=== PATIENT | male | born 1960 | race Caucasian/White ===

== ENCOUNTER 2024-01-17 01:22 | Observation (INO) | payer BC, SELFPAY ==
[2024-01-16 16:50] VITALS: BP 190/70
--- NOTE | 2024-01-16 17:58 | ED.GENMED ---
History of Present Illness
General
Chief Complaint: Chest Pain
Time Seen by Provider: 01/16/24 17:58
Travel History
Have you had any contact with someone who has COVID-19?: No
Do you have any symptoms of coronavirus? Fever > 100 degrees, chills, cough, shortness of breath, sore throat, loss of taste or smell, muscle aches, or headache?: No
History of Present Illness
History of Present Illness:
HPI: The patient presents with chest discomfort associated with palpitations. This been intermittently occurring associated with anxiety. He has been having trouble sleeping. agrees that this is most likely anxiety related. He does not take
any benzos. He was recently hospitalized at [facility] for distal lower extremity fractures. He states that he was recently told he has prolonged QT. He denies shortness of breath.
EXAM:
GENERAL: Well appearing in no distress
HEENT: Moist oral mucosa
CARDIOVASCULAR: No murmurs, normal heart rate, regular rhythm, No chest wall tenderness
PULMONARY: No respiratory distress, breath sounds are clear and equal
ABDOMEN: Soft with no peritoneal signs, no tenderness
NEUROLOGIC: Excellent strength all extremities, no coordination deficits
PSYCHIATRIC: Appropriate mental status, normal insight and judgement
EXTREMITIES: The patient has cam boots bilaterally, no calf edema/tenderness
SKIN: No rash, no lesions
TIME OF INITIAL ENCOUNTER: 6 PM
NUMBER AND COMPLEXITY OF PROBLEMS ADDRESSED AT THE ENCOUNTER
� Chronic conditions affecting care: High blood pressure, hyperlipidemia, GERD, IDDM, anxiety/depression
� Acute Exacerbation and/or Progression of Chronic Illness: This is an acute problem
� Differential Diagnosis includes: Anxiety, ACS, PE very unlikely as he has no shortness of breath currently in room air sats are 100% and his heart rate is in the 60s
AMOUNT AND/OR COMPLEXITY OF DATA TO BE REVIEWED AND ANALYZED
� I performed an independent evaluation of and my interpretation is:
EKG: Sinus 67, left axis deviation, nonspecific ST abnormality, borderline LVH, QTc [address]:
X-rays: Chest x-ray shows no acute abnormality
Laboratory Studies: White count 10.9, hemoglobin 10.5, initial troponin less than 0.012
Other:
� Review of other/old records: I look for old records�no old hemoglobin to compare
� Clinical information was obtained by an independent historian: Spoke to the at bedside
� Prescriptions/Medications Considered but not given:
� Further testing considered but not performed:
RISK OF COMPLICATIONS AND/OR MORBIDITY OR MORTALITY OF PATIENT MANAGEMENT
� Social determinants of health affecting care: Lives at home
� Discussion with other providers: Dr. Li for admission
� Escalation of care including admission/observation vs risk of discharge considered: I reassessed patient after Ativan was given however the patient now states that he is 'climbing out of my skin'. says this is a mild
episode. Strongly suspect anxiety component. Will give additional dose of Ativan. Vital signs are not consistent with PE and he has no shortness of breath currently. His room air sats are 100%. He is in no respiratory distress. On reassessment
at 10:15 PM, the patient now appears encephalopathic. He frequently could not answer questions appropriately. When asked him how he is feeling - '22'. He appears very akathisic. Will add CT of the brain as well as other studies. There were no
other visits available for review of old record. He had been on narcotic analgesia related to his distal lower extremity fractures which may be contributing factor to his change in mental status. states that his mental status changes or
transient throughout this past week. He does not appear well enough to return home at this time.
Phy Exam
Physical Exam
Physical Exam:
See HPI
Scores
Heart Score for Chest Pain Patients
STEMI patient?: Not applicable
Course
Orders/Labs/Results
Orders:
Orders
01/16/24 16:49
EKG [Electrocardiogram (*1)] Urgent
Reason for Study: Chest Pain
EKG- Treatment ONCE
01/16/24 18:02
Alcohol Urgent
Complete Blood Count/With Diff Urgent
Comprehensive Metabolic Panel Urgent
PTT Urgent
Troponin I Urgent
01/16/24 18:06
Lorazepam [Ativan] 1 mg IV NOW STA
01/16/24 18:10
CR Chest - 2 Views Urgent
Comment:
Reason For Exam: cp
01/16/24 18:36
Lorazepam [Ativan] 1 mg IV NOW STA
01/16/24 21:20
Ketorolac [Toradol] 15 mg IV NOW STA
01/16/24 21:25
Troponin I Urgent
01/16/24 21:30
ECG [Electrocardiogram (*1)] Urgent
Reason for Study: Chest Pain
EKG- Treatment ONCE
01/16/24 22:13
Add On- LAB Urgent
Tests Added?: alcohol
CT Head W/o Iv Contrast Urgent
Comment:
Reason For Exam: alt ms
01/16/24 22:22
Fentanyl, Urine Urgent
Urinalysis Reflex To Culture Urgent
Date Specimen was Collected: 01/16/24
Time Specimen was Collected: 22:21
Urine Drug Abuse Screen Urgent
Date Specimen was Collected: 01/16/24
Time Specimen was Collected: 22:21
01/17/24 01:03
Admit/Transfer Patient As Directed
Co-Sign Provider:
Level of Care: Observation services
Assign to:: Telemetry
Physician / Group: Guillermo
Diagnosis: Encephalopathy
Reason for Telemetry: Arrhythmia
Date to Stop Telemetry: 01/20/24
Time to Stop Telemetry: 11:00
01/17/24 01:05
Code Status As Directed
Resuscitation Status: Full Code
01/20/24 11:00
DC Protocol for Telemetry ONCE
Abnormal Lab Results
01/16/24 01/16/24 01/16/24
18:02 20:30 21:09
WBC 10.9 H 10^3/uL
(4.8-10.8)
RBC 4.24 L 10^6/uL
(4.70-6.10)
Hgb 10.5 L g/dL
(13.0-18.0)
Hct 31.9 L %
(39.0-52.0)
MCV 75.2 L fL
(80.0-94.0)
MCH 24.8 L pg
(27.0-31.0)
MCHC 32.9 L g/dL
(33.0-37.0)
RDW 22.3 H %
(11.5-14.5)
Abs Immat Gran (auto) 0.1 H 10^3/uL
(0-0.05)
Absolute Lymphs (auto) 4.3 H 10^3/uL
(1.2-3.4)
Absolute Monos (auto) 0.9 H 10^3/uL
(0.1-0.6)
Immature Gran % 0.6 H %
(0-0.5)
Glucose 194 H mg/dl
(70-99)
Urine Glucose
Urine Opiates Screen
U Benzodiazepines Scrn
POC Glucose 67 L mg/dl 163 H mg/dl
(70-99) (70-99)
01/16/24
22:22
WBC
RBC
Hgb
Hct
MCV
MCH
MCHC
RDW
Abs Immat Gran (auto)
Absolute Lymphs (auto)
Absolute Monos (auto)
Immature Gran %
Glucose
Urine Glucose Trace A
(Negative)
Urine Opiates Screen Positive H
(Negative)
U Benzodiazepines Scrn Positive H
(Negative)
POC Glucose
01/16/24 18:02
01/16/24 18:02
Vital Signs
Initial and Last Documented VS:
Initial Vital Signs
Temp Pulse Resp BP Pulse Ox
98.4 F 70 18 190/70 98
01/16/24 16:50 01/16/24 16:50 01/16/24 16:50 01/16/24 16:50 01/16/24 16:50
Last Documented Vital Signs
Temp Pulse Resp BP Pulse Ox
98.4 F 72 16 161/69 98
01/16/24 16:50 01/17/24 01:14 01/17/24 01:14 01/17/24 01:14 01/17/24 01:14
*Critical Care Note
Total Time (30-74mins, 75-104mins- exclusive of procedures): Not Applicable
ED Attending Note
-
Portions of this chart may have been created with voice recognition software.� Occasional wrong word or��sound alike� substitutions may have occurred due to the inherent limitations of voice recognition software.
Discharge Plan
Departure
Patient Disposition: Admit
Date of Disposition: 01/17/24
Time of Disposition: 00:48
Presentation/result/management discussed w/ accepting MD/DO: Hospitalist
Discharge Problem:
Encephalopathy acute
Prescriptions:
No Action
atorvastatin 40 mg Tablet
40 mg PO DAILY
hydralazine 10 mg Tablet
10 mg PO TID
carvedilol 25 mg Tablet
25 mg PO BID
verapamil 360 mg Capsule,Ext Rel. Pellets 24 Hr
360 mg PO HS
aspirin 81 mg Tablet,Delayed Release (Dr/Ec)
81 mg PO BID
hydromorphone 2 mg Tablet
2 mg PO Q6H PRN (Reason: moderate to severe pain)
Patient Comments:
01/16/2024: last filled 01/14/24, 10 tabs for 2 days from [facility]
pantoprazole 40 mg Tablet,Delayed Release (Dr/Ec)
40 mg PO DAILY
naproxen 500 mg Tablet
500 mg PO Q48H
Humalog U-100 Insulin 100 unit/mL Cartridge
0 unit SC .VIA PUMP
escitalopram oxalate 20 mg Tablet
20 mg PO DAILY
Enbrel 50 mg/mL (1 mL) Syringe
50 mg SC SA
Referrals:
Cecilio Funes MD [Family Provider] -
Interventions
Interventions:
*Risk Screen - Suicide Last Done: 01/16/24 16:50
*General Assessment Last Done: 01/16/24 16:50
*Neglect/Abuse Screening Last Done: 01/16/24 18:03
ED- Fall Risk Assessment Last Done: 01/16/24 18:03
*ED COVID-19 Vaccine History Last Done: 01/16/24 16:50
ED- Cardiac Assessment Last Done: 01/16/24 18:03
Discharge Date and Time
Print Language: SPANISH
[2024-01-16 18:01] VITALS: BP 142/52
[2024-01-16] MEDS: ATIVAN 1 MG IV ×2 (18:11→18:41)
[2024-01-16 18:19] LABS: APTT 30.8 Sec (23.4-35.0)
[2024-01-16 18:25] LABS: ALT (SGPT) 39 U/L (0-50); AST (SGOT) 37 U/L (17-59); Albumin 3.8 g/dl (3.5-5.0); Alkaline Phosphatase 101 U/L (38-126); Blood Urea Nitrogen 17 mg/dl (9-20); Calcium 9.5 mg/dl (8.4-10.2); Carbon Dioxide 28 mmol/L (22-30); Chloride 104 mmol/L (98-107); Glucose 194 mg/dl (70-99); Sodium 136 mmol/L (135-145); Total Bilirubin 0.4 mg/dl (0.2-1.3); Total Protein 6.8 g/dl (6.3-8.2); eGFR > 60.00
[2024-01-16 18:33] LABS: Troponin I < 0.012 ng/ml
[2024-01-16 18:42] LABS: % Basophils 0.6 % (0-2); % Eosinophils 5.5 % (0-6); % Immature Granulocytes 0.6 % (0-0.5); % Lymphocytes 39.8 % (20.5-51.1); % Monocytes 7.8 % (1.7-9.3); % Neutrophils 45.7 % (42.2-75.2); Absolute Basophils 0.1 10^3/uL (0-0.2); Absolute Eosinophils 0.6 10^3/uL (0-0.7); Absolute Immature Granulocytes 0.1 10^3/uL (0-0.05); Absolute Lymphocytes 4.3 10^3/uL (1.2-3.4); Absolute Monocytes 0.9 10^3/uL (0.1-0.6); Hematocrit 31.9 % (39.0-52.0); Hemoglobin 10.5 g/dL (13.0-18.0); Mean Corp Hgb Conc. 32.9 g/dL (33.0-37.0); Mean Corpuscular Hgb 24.8 pg (27.0-31.0); Mean Corpuscular Volume 75.2 fL (80.0-94.0); Mean Platelet Volume 9.1 fL (7.4-10.4); Nucleated Red Blood Cells % 0 % (-); Platelet Count 284 10^3/uL (130-400); Red Blood Cell Count 4.24 10^6/uL (4.70-6.10); Red Cell Dist. Width 22.3 % (11.5-14.5); White Blood Cell Count 10.9 10^3/uL (4.8-10.8)
[2024-01-16 18:47] LABS: Normal RBC Morphology No
[2024-01-16 18:49] LABS: Anisocytosis 1+
[2024-01-16 18:50] LABS: Hypochromasia Slight; Stomatocytes Slight
[2024-01-16 18:51] LABS: Ovalocytes 1+
[2024-01-16 19:37] VITALS: BP 133/96
[2024-01-16 20:32] LABS: Glucose - Point of Care 67 mg/dl (70-99)
[2024-01-16 21:10] LABS: Glucose - Point of Care 163 mg/dl (70-99)
[2024-01-16] MEDS: TORADOL 15 MG IV (21:26)
[2024-01-16 22:04] LABS: Troponin I < 0.012 ng/ml
[2024-01-16 22:35] LABS: Urine Albumin Negative (Neg - Trace); Urine Bilirubin Negative (Negative); Urine Character Clear (Clear); Urine Color Yellow; Urine Glucose Trace (Negative); Urine Ketone Negative (Negative); Urine Leukocyte Negative (Negative); Urine Nitrite Negative (Negative); Urine Occult Blood Negative (Negative); Urine Urobilinogen Negative (Neg - 1+)
[2024-01-16 22:44] LABS: Amphetamines Negative (Negative); Barbiturates Negative (Negative); Benzodiazepines Positive (Negative); Buprenorphine Negative (Negative); Cocaine Negative (Negative); Marijuana Negative (Negative); Methadone Negative (Negative); Methamphetamines Negative (Negative); Opiates Positive (Negative); Phencyclidine Negative (Negative); Tricyclic Antidepressants Negative (Negative)
[2024-01-16 22:46] LABS: Alcohol None Detected
[2024-01-16 23:11] LABS: Fentanyl, Urine Negative (Negative)
[2024-01-16 23:30] VITALS: BP 170/75
[2024-01-16 23:32] VITALS: BP 170/75
[2024-01-17] VITALS (13 sets, daily range): BP systolic 145–182; BP diastolic 64–83; PULSE 85–87; BMI 33.2
--- NOTE | 2024-01-17 01:14 | HPS.HSE ---
Family Physician
-
Family Physician: Ceiclio Funes
Chief Complaint
-
Agitation, Restlessness, Confusion
History of Present Illness
Patient is a 63y M with PMH significant for DM-II, hypertension and 'tachycardia' who presents to ED for evaluation of restlessness, agitation and confusion. History obtained from patient and his at the bedside. notes that patient has
had issues with restlessness, apparent hallucinations - reaching and grabbing for objects, sleep walking, etc. This has been going on for some time apparently, but has been much worse over the past 2 weeks or so. Symptoms have primarily occurred
at night; however, notes that they have been more severe and more frequent over the past 2 weeks.
About 10 days ago, patient was walking down the stairs and thinks he must have fallen asleep. He fell down the stairs and reportedly broke both of his ankles. He was seen at [facility] at that time. He was diagnosed with a sprain and was apparently
diagnosed with fractures of both ankles later as an outpatient. He has bilateral walking boots but is not wearing them at present.
He had similar restlessness and agitation during his evaluation at [facility].
His only new medication is Enbrel - which he has now had two doses of total. notes that these symptoms were present before beginning Enbrel - though the two week timeline of acute / significant worsening seems to fit.
He has also tapered off of Belbuca over the past month or so. He has been in discussion with his pain management physicians who do not feel that his current prolonged symptoms would be a result of withdrawal from this medication - especially as his
dose was tapered gradually over a month.
Patient does note that he has had significant difficulty sleeping and states that he has been taking 'over the counter sleep aids' for some time. He does not know the name / dose of these medications.
Patient is typically seen at [facility] for his healthcare needs and has not been seen here previously.
When I enter the room, patient is restless in the bed - moving frequently from side to side. He will answer questions briefly but correctly / appropriately and then resume his movements. He is seen to be frequently reaching out to hold or
manipulate objects that are not present. He grabs at my hands and stethoscope during my exam - despite appropriately responding to questions immediately before and after that.
During the interview, I advise him to be cautious of his insulin pump that I fear may become dislodged during his thrashing. He responds that he is careful of it and hen continues his movements.
At the end of my visit, patient is awake and alert and completely at rest. He provides detailed history and answers all of my questions appropriately. There are no further abnormal movements or apparent incoherence.
Medical History
Past Medical History
Past Medical History: Reports Other
Additional Past Medical History:
DM-II
Hypertension
Tachycardia
Chronic Pain Syndrome
Psoriatic Arthritis
Anxiety
Chronic Anemia
Past Surgical History: Reports Other
Additional Past Surgical History:
Left TKA
Right Thoracotomy / Lobectomy (s/p fall / trauma) - 2017
Social History
Tobacco: Former Smoker (Quit 35 years ago. Approx 20 pack years total use.)
Alcohol: Former (No alcohol at all since his fall / trauma in 2017.)
Drug: Marijuana (Occasional)
Personal:
Living: With Family
Family History
Family History: Not pertinent
Allergies / Home Medications
Allergies reflects when Allergies were last updated in [facility] [employer] [facility] [employer].
Home Medications with original date entered in [facility] [facility] [employer]
Allergy/Medication List:
Allergies
Allergy/AdvReac Type Severity Reaction Status Date / Time
levofloxacin Allergy Anaphylaxis Verified 01/16/24 16:50
lisinopril Allergy Anaphylaxis Verified 01/16/24 16:50
oxycodone Allergy Anaphylaxis Verified 01/16/24 16:50
Penicillins Allergy Anaphylaxis Verified 01/16/24 16:50
secukinumab [From Cosentyx] Allergy Anaphylaxis Verified 01/16/24 16:50
Home Medications
aspirin 81 mg tablet,delayed release 81 mg PO BID 01/16/24
atorvastatin 40 mg tablet 40 mg PO DAILY 01/16/24
carvedilol 25 mg tablet 25 mg PO BID 01/16/24
escitalopram oxalate 20 mg tablet 20 mg PO DAILY 01/16/24
etanercept 50 mg/mL (1 mL) subcutaneous syringe (Enbrel) 50 mg SC SA 01/16/24
hydralazine 10 mg tablet 10 mg PO TID 01/16/24
hydromorphone 2 mg tablet 2 mg PO Q6H PRN moderate to severe pain 01/16/24
insulin lispro 100 unit/mL subcutaneous cartridge (Humalog U-100 Insulin) 0 unit SC .VIA PUMP 01/16/24
naproxen 500 mg tablet 500 mg PO Q48H 01/16/24
pantoprazole 40 mg tablet,delayed release 40 mg PO DAILY 01/16/24
verapamil 360 mg 24 hr capsule,extended release 360 mg PO HS 01/16/24
Review of Systems
-
History Source: Patient and Family
A 12 point ROS was completed and negative except as noted: Yes
Constitutional: Reports Fatigue and Sleep Disturbance; Denies Fever, Night Sweats or Chills
EENT: Denies Sore Throat
Respiratory: Denies Cough or Trouble Breathing
Cardiac: Reports Chest Pain and Palpitations; Denies Diaphoresis or Syncope
Abdomen/GI: Denies Abdominal Pain, Nausea, Vomiting or Diarrhea
: Denies Dysuria, Frequency or Flank Pain
Musculoskeletal: Reports Joint Pain; Denies Edema
Neurological: Denies Dizzy, Headache, Weakness or Numbness
Psych: Reports Anxiety and Other (Restless / agitated.)
Physical Exam
Vital Signs
Vital Signs
Temp Pulse Resp BP Pulse Ox
98.4 F 64 16 170/75 97
01/16/24 16:50 01/16/24 23:30 01/16/24 23:30 01/16/24 23:30 01/16/24 23:30
Physical Exam
General: Other (63y M exhibiting varying degrees of interaction / awareness.)
HEENT: Moist mucous membranes and PERRLA
Respiratory: Clear; No Wheezes, Rales or Rhonchi
Cardiac: S1/S2 and Regular Rhythm; No Murmur
GI: Soft, Non Tender, Non Distended, Normal Bowel Sounds and Other (insulin pump RLQ.)
Musculoskeletal: No Clubbing, No Cyanosis and No Edema
Neuro: AO x 3 and Nonfocal/grossly intact (Moves all extremities equally / spontaneously.)
Psych: Other (See HPI for detailed description of patient's mentation / movement issues.)
Laboratory Results
-
01/16/24 18:02
01/16/24 18:02
Laboratory Results
APTT 30.8 Sec (23.4-35.0) 01/16/24 18:02
Total Bilirubin 0.4 mg/dl (0.2-1.3) 01/16/24 18:02
AST 37 U/L (17-59) 01/16/24 18:02
ALT 39 U/L (0-50) 01/16/24 18:02
Alkaline Phosphatase 101 U/L (38-126) 01/16/24 18:02
Troponin I < 0.012 ng/ml 01/16/24 21:25
Impression/Plan
-
A/P: Patient is a 63y M with PMH significant for HTN and DM-II who presents to ED for evaluation of acute worsening in agitation / restlessness / etc over the past 2 weeks.
Agitation / Restlessness / Apparent Hallucinations
Acute on Chronic Encephalopathy
- Observe overnight for further evaluation and treatment.
- Exam / history is somewhat atypical.
- ? neurologic process, med effect (sleep aids especially), etc.
- Given chronic psoriatic arthritis and prior treatment with immunologics - as well as increase in symptoms apparently coinciding with change to Enbrel - concern for possible PML.
- Will check MRI with and without contrast.
- Neurology evaluation for additional recommendations.
- Follow for any changes in symptoms / focal symptoms / etc.
- Hold Enbrel for now.
- Will send to [facility] for patient records which may be helpful.
- Trial of Zyprexa PRN for restlessness / agitation.
Chest Pain
- Patient apparently complained of chest pain on arrival to the ED.
- He does not report any chest pain to me at present.
- EKG is unremarkable. Troponin is undetectable x 2.
- Follow for any new / recurrent complaints.
- Continue daily ASA.
DM-II
- Stable. Continue home insulin pump.
- Follow glucose and provide bolus dosing as needed.
- Update A1C.
Psoriatic Arthritis
- History of treatment with biologic agents - most recent Enbrel (2 weeks).
- Hold for now as noted above.
Chronic Pain Syndrome
- Patient is followed by [facility].
- He was tapered off of his usual Belbuca over the past month.
- He is currently on Dilaudid and will continue this for now.
Ankle Injury
- Patient with fall down stairs about 10 days ago.
- CT head is unremarkable.
- Reportedly broke both ankles and has walking boots at the bedside.
- Obtain records from [facility].
DVT Prophylaxis: Subcut Heparin
Code Status: Full
[2024-01-17 04:45] LABS: Glucose - Point of Care 68 mg/dl (70-99)
[2024-01-17 06:36] LABS: Hematocrit 32.8 % (39.0-52.0); Hemoglobin 10.5 g/dL (13.0-18.0); Mean Corpuscular Hgb 24.6 pg (27.0-31.0); Mean Platelet Volume 9.3 fL (7.4-10.4); Platelet Count 262 10^3/uL (130-400); Red Blood Cell Count 4.26 10^6/uL (4.70-6.10); White Blood Cell Count 9.6 10^3/uL (4.8-10.8)
[2024-01-17 06:59] LABS: Iron 56 ug/dl (49-181)
[2024-01-17 07:00] LABS: Blood Urea Nitrogen 11 mg/dl (9-20); Calcium 9.1 mg/dl (8.4-10.2); Carbon Dioxide 30 mmol/L (22-30); Chloride 104 mmol/L (98-107); Glucose 169 mg/dl (70-99); Magnesium 1.9 mg/dl (1.6-2.3); Potassium 3.8 mmol/L (3.5-5.1); Sodium 138 mmol/L (135-145); eGFR > 60.00
[2024-01-17 07:09] LABS: Percent Saturation 26 % (20-50); Total Iron Binding Capacity 208 ug/dl (261-462)
[2024-01-17 07:29] LABS: TSH Reflex To Free T4 1.55 uIU/ml (0.47-4.68)
[2024-01-17 07:48] LABS: Vitamin B12 681 pg/ml (239-931)
[2024-01-17] MEDS: DILAUDID 2 MG PO ×3 (07:49→21:08)
[2024-01-17] MEDS: ASPIR LOW (ENTERIC COATED) 81 MG PO (07:49)
[2024-01-17] MEDS: PROTONIX 40 MG PO (07:49)
[2024-01-17] MEDS: APRESOLINE 10 MG PO ×3 (07:50→21:33)
[2024-01-17] MEDS: HEPARIN 5000 UNITS SC ×2 (07:50→21:30)
[2024-01-17 08:38] LABS: Glucose - Point of Care 78 mg/dl (70-99)
--- NOTE | 2024-01-17 09:11 | CON.NEURO4 ---
Addendum entered and electronically signed by Rashi Romeo MD 01/17/24 12:28:
I saw and evaluate the patient I reviewed the note by Ni Up agree with the findings the following comments:
The patient is a 63-year-old male with a past no history of diabetes hypertension rheumatoid arthritis insomnia PTSD and anxiety presenting the hospital with increased anxiety, panic attacks, confusion and insomnia.
Patient reports for the past several weeks has been sleeping only 1 to 4 hours a night. He has been taking some [id number] Target brand nighttime sleep aid which has doxylamine as well as melatonin. Reports that insomnia is been a long-term
problem he does state that he had seen [facility] and been tried on a couple of sleep aids.
He had been tried on a new medication for rheumatoid arthritis around 2 weeks ago, previously had been on Humira.
He had also had Dilaudid prescribed p.o. for ankle fracture recently. Takes tramadol at baseline already.
Denies any marijuana or alcohol use or recreational drug use has been sober for around 4 years.
He has been more upset and anxious after the news about college protest and is real versus [place] conflict.
Neurologic examination
Normal mental status good insight and judgment no hallucinations praxis is normal obeys multistep commands
Cranial nerves II through XII normal
Motor examination sensory examination normal
Reflexes 2+ and symmetric throughout
Coordination normal
CT head noncontrast unremarkable
Assessment: Very likely this is multifactorial behavioral and neuropsychologic issues. Anxiety and history of PTSD probably contributing and patient also has 6 severe insomnia. Jajc-dso-lljacej nighttime sleep aid doxylamine also producing some
confusion probably as well.
Recommendations
-MRI brain with and without contrast while low yield probably should be pursued
-Discussed with patient he needs to stop the Target brand sleep aid as it can probably produce some confusion
-Consideration for Seroquel versus gabapentin as a nighttime sleep aid, strongly recommend that he see sleep medicine as an outpatient
-Psychiatry consultation
Original Note:
Consultation - Neurology 4
-
CONSULTING PHYSICIAN: Joelle Romeo MD
REFERRING PHYSICIAN: Hospitalists/Dr. Li
DICTATED BY: ALEJANDRO Farrell
DATE/TIME OF REQUEST: 01/17/24
DATE/TIME OF CONSULTATION: 01/17/24
Reason for Consultation: Encephalopathy
History of Present Illness:
This is a 63-year-old right-handed male who has presented to the hospital on 01/16/24 with report of chest pain, palpitations, anxiety/panic attack, confusion, and insomnia. Patient reports a significant history of anxiety/PTSD since doing two tours
in the [employer] in [facility] in his 20's. He has been taking Lexapro for years, is not seeing a therapist. He also has psoriatic arthritis and has been on Humira, Cosentyx, Tremfya in the past and just started Enbrel two weeks ago. He has chronic
pain and takes Tramadol 50mg 2-3 times per day PRN. He was taking Belbuca for pain but weaned off of this and completely stopped it two weeks ago. He reports chronic insomnia and averages 4 hours of sleep per night. He takes OTC melatonin and a
[employer] brand Nighttime Sleep-Aid (doxylamine succinate 25mg tablet) for sleep.
About two weeks ago, he reports a severe worsening of his anxiety/panic attacks and inability to sleep at all. He attributes this to the recent campus protests of the [place] war. He reports only 'nodding-off' for 10-30 minutes for 7 days. On
01/08/24 he had a sleep-walking/hallucination event during the middle of the night and fell down a flight of stairs. He was hospitalized at [facility] until 01/12/24 with b/l foot/ankle fractures. He received IV Dilaudid for pain while
hospitalized and was discharged home with a prescription for 8 2mg Dilaudid tablets. Yesterday (01/16/24), patient reports that his panic attack symptoms were becoming more severe, he was having chest discomfort, and he check his blood pressure and it
was significantly elevated. His decided he needed help for all of the mentioned above, and he came to the ER for evaluation. CT head was obtained in the ER and is negative for any acute abnormalities. In the ER he was noted to be oriented but
he was thrashing around in bed raising concern for an acute neurological abnormality. Today (01/17/24), patient reports feeling anxious with racing thoughts. He denies any hallucinations, vision changes, headache, neck/back pain, dizziness,
speech/swallow difficulty, numbness, weakness, nausea, chest pain, palpitations, and shortness of breath.
Past Medical History: NIDDM requiring insulin, HTN, tachycardia, psoriatic/rheumatoid arthritis, anxiety, insomnia, PTSD, chronic anemia
Surgical History: L TKA, R thoracotomy/lobectomy s/p fall/trauma 2016
Family History: Reviewed and noncontributory.
Social History: Former tobacco, alcohol, and marijuana quit several years ago.
Allergies: Levofloxacin, lisinopril, oxycodone, penicillins, secukinumab.
Home Medications: See below.
Review of Symptoms:
Patient denies any fever, headache, chest pain, shortness of breath, GI or symptoms.
�Per the HPI.�All systems are reviewed negative except above.
Physical Exam:
The patient is afebrile, abdomen is nondistended, breathing is unlabored, skin is warm and dry, trace BLE edema.
Neurologic Examination:
The patient is awake, alert and oriented x 3. He is able to follow commands and answer questions appropriately. There is no aphasia or dysarthria. On cranial nerve assessment, pupils are 3 mm bilateral, round and reactive to light and
accommodation. Visual hsu are full. Extraocular movements are intact. Facial sensations are intact and bilaterally symmetrical, there is no facial asymmetry. Hearing is intact bilaterally to normal conversation volume. Tongue palate and uvula are
midline. Sternocleidomastoid strengths are full bilaterally. Motor strengths are 5/5 bilateral upper and lower extremities on medical research [place] scale. There is no drift or involuntary movement noted. Deep tendon reflexes are 2+ bilateral
upper and patellar, KISHAN Achilles due to fractures. Babinski is absent bilaterally. Sensations of touch and vibration are intact and bilaterally symmetrical. Sensation of cold is mildly reduced in distal bilateral lower extremities. There was no
extinction noted on double simultaneous stimulation. Coordination is intact by finger to nose bilaterally.
Lab Results: See below.
Neuro Imaging:
1. CT Head 01/16/24: No acute intracranial abnormalities. Findings compatible with interval diffuse cortical atrophy with minor nonspecific white matter changes as described above.
Differentials for the patient's presentation include:
1. Insomnia, anxiety, and polypharmacy likely producing episodes of delirium/sleep walking.
2. Very low concern for structural or infectious intracranial process producing symptoms.
Patient has the following risk factors for their symptoms: Insomnia, polypharmacy, anxiety/PTSD, HTN, HLD, NIDDM
Recommendations:
-MRI brain w/ and w/o contrast will likely be low yield, pending. Lorazepam 1.5mg IV on-call for MRI due to severe claustrophobia.
-Goal normotension.
-Would avoid use of OTC sleep aid medications as these can cause confusion.
-Minimize narcotic usage as much as possible.
-Psychiatry consult, appreciate input on medication for sleep/anxiety. Consideration for seroquel or zyprexa.
-Neurological checks per unit guidelines.
-DVT prophylaxis.
-Patient needs outpatient psychotherapy sessions.
-Continue to avoid alcohol.
-Will follow pending results.
Discussed patient care with: Dr. Romeo, the patient
Vital Signs and Labs
-
Vital Signs and Labs:
Vital Signs
Temp Pulse Resp BP Pulse Ox
98.3 F 78 18 182/82 100
01/17/24 11:34 01/17/24 11:34 01/17/24 11:34 01/17/24 11:34 01/17/24 11:34
Lab Results
01/17/24 06:24
01/17/24 06:24
APTT 30.8 Sec (23.4-35.0) 01/16/24 18:02
Sodium 138 mmol/L (135-145) 01/17/24 06:24
Potassium 3.8 mmol/L (3.5-5.1) 01/17/24 06:24
BUN 11 mg/dl (9-20) 01/17/24 06:24
Glucose 169 mg/dl (70-99) H 01/17/24 06:24
Calcium 9.1 mg/dl (8.4-10.2) 01/17/24 06:24
Vitamin B12 681 pg/ml (239-931) 01/17/24 06:24
Ur Buprenorphine Negative (Negative) 01/16/24 22:22
Medications
-
Active Medications
Generic Name Dose Route Start Last Admin
Trade Name Freq PRN Reason Stop Dose Admin
Acetaminophen 650 mg 01/17/24 03:50
Acetaminophen 325 Mg Tablet PO 02/14/24 03:49
Q4HPRN PRN
Mild Pain / Temp > 101
Aspirin 81 mg 01/17/24 08:00 01/17/24 07:49
Aspirin 81 Mg (Enteric Coated) Tablet PO 02/14/24 07:59 81 mg
DAILY ONI Administration
Atorvastatin Calcium 40 mg 01/17/24 08:00 01/17/24 09:26
Atorvastatin (Lipitor) 40 Mg Tablet PO 02/14/24 07:59 40 mg
DAILY ONI Administration
Carvedilol 25 mg 01/17/24 08:00 01/17/24 09:26
Carvedilol 25 Mg Tablet PO 02/14/24 07:59 25 mg
BID ONI Administration
Dextrose 12.5 grams 01/17/24 03:50
Dextrose 50% (0.5 Grams/Ml) 50 Ml Syringe IV 02/14/24 03:49
[id number] PRN
hypoglycemia
Protocol
Glucagon 1 mg 01/17/24 03:50
Glucagon 1 Mg Vial IM 02/14/24 03:49
PRN PRN
hypoglycemia
Protocol
Heparin Sodium 5,000 units 01/17/24 08:00 01/17/24 07:50
Heparin 5,000 Units/Ml 1 Ml Vial SC 02/14/24 07:59 5,000 units
Q12 ONI Administration
Hydralazine HCl 10 mg 01/17/24 08:00 01/17/24 07:50
Hydralazine 10 Mg Tablet PO 02/14/24 07:59 10 mg
TID ONI Administration
Hydromorphone HCl 2 mg 01/17/24 03:50 01/17/24 07:49
Hydromorphone 2 Mg Tablet PO 01/31/24 03:49 2 mg
Q8HPRN PRN Administration
moderate to severe pain
Lorazepam 1.5 mg 01/17/24 11:07
Lorazepam 2 Mg/Ml Vial IV 02/14/24 11:06
ONCE PRN
claustrophobia
Olanzapine 2.5 mg 01/17/24 03:50
Olanzapine 2.5 Mg Tablet PO 02/14/24 03:49
Q8HPRN PRN
Agitation
Pantoprazole Sodium 40 mg 01/17/24 08:00 01/17/24 07:49
Pantoprazole 40 Mg Delayed Release Tablet PO 02/14/24 07:59 40 mg
DAILY ONI Administration
Patient Own Medication 0 units 01/17/24 07:30 01/17/24 09:19
Insulin Pump - Patient's Own SC 02/14/24 07:29 7.3 units
ACHS ONI Administration
Sodium Chloride 0 flush 01/17/24 04:00
Sodium Chloride 0.9% (Flush) Syringe IV 02/14/24 03:59
PER PROTOCOL ONI
Verapamil HCl 360 mg 01/17/24 22:00
Verapamil 180 Mg (Extended Release) Tablet PO 02/14/24 21:59
HS ONI
Home Medications
�Medication �Instructions �Recorded
aspirin 81 mg tablet,delayed 81 mg PO BID 01/16/24
release
atorvastatin 40 mg tablet 40 mg PO DAILY 01/16/24
carvedilol 25 mg tablet 25 mg PO BID 01/16/24
escitalopram oxalate 20 mg tablet 20 mg PO DAILY 01/16/24
etanercept 50 mg/mL (1 mL) 50 mg SC SA 01/16/24
subcutaneous syringe (Enbrel)
hydralazine 10 mg tablet 10 mg PO TID 01/16/24
hydromorphone 2 mg tablet 2 mg PO Q6H PRN moderate to severe 01/16/24
pain
insulin lispro 100 unit/mL 0 unit SC .VIA PUMP 01/16/24
subcutaneous cartridge (Humalog
U-100 Insulin)
naproxen 500 mg tablet 500 mg PO Q48H 01/16/24
pantoprazole 40 mg tablet,delayed 40 mg PO DAILY 01/16/24
release
verapamil 360 mg 24 hr 360 mg PO HS 01/16/24
capsule,extended release
[2024-01-17] MEDS: PATIENT'S OWN INSULIN PUMP 7.29999999999999982 UNITS SC (09:19)
[2024-01-17] MEDS: COREG 25 MG PO ×3 (09:26→21:30)
[2024-01-17] MEDS: LIPITOR 40 MG PO (09:26)
[2024-01-17 09:50] LABS: Glycohemoglobin (HgbA1c) 6.7 % (4.0-5.6)
--- NOTE | 2024-01-17 11:03 | PN.DE.MGMTRT ---
Insulin Management
- -
01/17/2024: Diabetes Management Consult:
63 year old male admitted with Agitation, Restlessness, Confusion
PMH: HTN, Tachycardia, Chronic Pain Syndrome, Psoriatic Arthritis, Anxiety, Chronic Anemia and T1DM since childhood.
Pt currently off the floor for tests and unable for interview, hx obtained from pt's and sister at bedside.
Per pt's , he routinely follows with [facility] Dr. Salinas. He uses Medtronic 770 G insulin pump with Humalog insulin and Guardian sensor for glucose monitoring.
According to pt's he is normally well controlled w/o issues of low blood sugar.
Of note, pt had an episode of Hypoglycemia as low as 67 at HS last night and again as low as 68 early this AM.
His current pump settings were obtained from pt's who has them written down and are as follows:
Basal 12A- 4A 0.725 ICF 12A -12A 1:15
4A - 8A 0.825 ICR 12A - 12A 1:10
8A - 12P 1.20 Target 100-110
12P - 3P 1.40
3P - 6P 1.50
6P - 10P 1.40
10P - 12A 1.30
24 hr Total basal 27.9 units
Pt is independent managing his insulin pump at this time. Will make no changes to settings.
Will follow in am.
Diabetes History
- -
Type of Diabetes: 1
Pre-Admission Diabetes Regimen
01/16/24 01/17/24
18:02 06:24
Creatinine 0.9 0.9
Insulin Pump Settings
IP Diabetes Regimen
01/16/24 01/16/24 01/16/24
18:02 20:30 21:09
Glucose 194 H
POC Glucose 67 L 163 H
01/17/24 01/17/24 01/17/24
04:44 06:24 08:36
Glucose 169 H
POC Glucose 68 L 78
Patient Education
--- NOTE | 2024-01-17 11:14 | W.PN.HOSP.TC ---
Today's Communication/Plan
-
mri brain
psych and neuro recs for ams +/- PTSD
possible DC today
Assessment / Plan
Assessment / Plan
Physical Exam
General: NAD, AAOx3
HEENT: Moist mucous membranes and PERRLA
Respiratory: Clear; No Wheezes, Rales or Rhonchi
Cardiac: S1/S2 and Regular Rhythm; No Murmur
GI: Soft, Non Tender, Non Distended, Normal Bowel Sounds and Other (insulin pump RLQ.)
Musculoskeletal: No Clubbing, No Cyanosis and No Edema
Neuro: AO x 3 and Nonfocal/grossly intact (Moves all extremities equally / spontaneously.)
A/P: Patient is a 63y M with PMH significant for HTN and DM-II who presents to ED for evaluation of acute worsening in agitation / restlessness / etc over the past 2 weeks.
Agitation / Restlessness / Apparent Hallucinations
Acute on Chronic Encephalopathy
- Possible related to PTSD +/- Dilaudid use
-F?u Brain MRI
-F/u Neuro, Psych recs
-Adjust meds for PTSD as per psych
-hold Enbrel for now
- Will send to [facility] for patient records which may be helpful.
- Trial of Zyprexa PRN for restlessness / agitation.
-No urinary symptoms
Chest Pain
- Patient apparently complained of chest pain on arrival to the ED.
- He does not report any chest pain to me at present.
- EKG is unremarkable. Troponin is undetectable x 2.
- Follow for any new / recurrent complaints.
- Continue daily ASA.
DM-II
- Stable. Continue home insulin pump.
- Follow glucose and provide bolus dosing as needed.
- Update A1C.
Psoriatic Arthritis
- History of treatment with biologic agents - most recent Enbrel (2 weeks).
- Hold for now as noted above.
Chronic Pain Syndrome
- Patient is followed by [facility].
- He was tapered off of his usual Belbuca over the past month.
- He is currently on Dilaudid and will continue this for now. - hopeful to wean off if possible as opiates may worsen his mentatation
Ankle Injury
- Patient with fall down stairs about 10 days ago.
- CT head is unremarkable.
- Reportedly broke both ankles and has walking boots at the bedside.
- Obtain records from [facility].
DVT Prophylaxis: Subcut Heparin
Code Status: Full
More than 30 minutes spent in discharge including
Final examination of the patient
Summarizing hospital stay
Instructions for continuing care to all relevant caregivers
Preparation of discharge records, prescriptions, and referral forms
Total time spent (35 in minutes):
Anticipated Discharge: Today
Subjective/Interval History
-
Date of Service: January 17, 2024
Patient AAA x 3, fully comprehends everything that is going on, acknowledges he has very severe PTSD due to the war in the [place]
Objective Data
-
Labs:
Laboratory Results
01/17/24
06:24
WBC 9.6
Hgb 10.5 L
Hct 32.8 L
Plt Count 262
Sodium 138
Potassium 3.8
Chloride 104
Carbon Dioxide 30
BUN 11
Creatinine 0.9
Glucose 169 H
Calcium 9.1
Vital Signs:
Vital Signs
Temp Pulse Resp BP Pulse Ox
98.1 F 85 18 157/73 97
01/17/24 08:40 01/17/24 07:15 01/17/24 08:40 01/17/24 07:15 01/17/24 08:40
Review of Systems
-
History Source: Patient
All other systems: Not reviewed unless documented
Data Reviewed
-
Diagnostic Radiology: Image personally visualized and interpreted and Report Reviewed by me
CT Scan: Image personally visualized and interpreted and Report Reviewed by me
Labs: Labs Reviewed by me
--- NOTE | 2024-01-17 11:24 | PTCARENOTE ---
Patient arrived to unit AAOx3. Bed alarm in place, bedrest maintained per orders. IV placed in R hand. Oriented to room , call huntley within reach.
[2024-01-17 12:01] LABS: Glucose - Point of Care 145 mg/dl (70-99)
[2024-01-17] MEDS: PATIENT'S OWN INSULIN PUMP 5.40000000000000036 UNITS SC (12:56)
[2024-01-17] MEDS: TYLENOL 650 MG PO (14:56)
[2024-01-17] MEDS: ATIVAN 1.5 MG IV (15:37)
[2024-01-17] MEDS: NSS (PRESERVATIVE FREE) 0.75 ML IV (15:37)
[2024-01-17 16:26] LABS: Lyme Antibody Screen, EIA Equivocal (Negative)
--- NOTE | 2024-01-17 16:33 | CS.PSYCHR ---
Consult Summary - Psychiatry
-
Pt is a 63 yo male with PMH significant for DM-II, hypertension and 'tachycardia', psoriatic arthritis and chronic pain, who presented to the ED for worsening of sleep disturbance/ moving around at night with no apparent awareness. reports
this has been going on for some time but has been much worse over the past 2 weeks. Pt has reportedly slept very little over the past 10 days. Pt fell down the stairs on 01/07 while apparently sleep-walking, fracturing both ankles. Pt c/o delay in
diagnosis of his injuries, seen at [facility] where he usually receives care. Pt's only new medication is Enbrel - has had two doses thus far. notes that these symptoms were present before beginning Enbrel. Pt was also tapered off of Belbuca
over the past month. Pt c/o difficulty falling asleep and staying asleep. showed a video from last night in the ED, of pt moving around, getting out of the stretcher, with impaired attention to his surroundings. Pt states no recollection of
these behaviors. Ativan 1 mg IV x 2 reportedly did not help. Pt has been taking an OTC sleep aid with Doxylamine for a couple years. Pt is also on Lexapro 20 mg for about 2 years. PCP has tried Klonopin, melatonin, and Trazodone with no benefit
per pt's . She reports Ambien had the reverse effect/made pt 'wired.' Pt denies feeling more anxious or depressed, although family reports he has been more upset recently by events in the news.
Psych hx: noted hx of anxiety/possible PTSD related to serving 2 tours in the [employer] in his early 20's in the [place]
No history of inpatient treatment; no recent therapy. On Lexapro 20 mg daily for a couple years per
PMH: NIDDM requiring insulin, HTN, tachycardia, psoriatic/rheumatoid arthritis, anxiety, insomnia, PTSD, chronic anemia
SH: lives with ; past use of tobacco, alcohol, and marijuana- reportedly quit several years ago.
MSE: alert, oriented, calm, cooperative, making good eye contact. Mildly anxious and irritable, expressing concern about going home and starting a new medication. Speech/thought coherent/goal-directed. No agitation, no signs of psychosis. Mood
okay, affect appropriate/stable. Insight fair
Imp: Insomnia, with episodes of sleep walking, R/o REM Behavior disorder, although pt has not responded to benzodiazepines which are the recommended mgt
Unspecified anxiety, with recent increased stress and sleep deprivation
Rec: Agree with trial of Seroquel, usual starting range is 25 to 50 mg HS. Pt reportedly has tried many of the alternatives
Pt should follow up with a sleep specialist, as well as outpatient therapist upon return home.
May need to consider tapering down Lexapro
Will follow
--- NOTE | 2024-01-17 16:41 | PTCARENOTE ---
Patient medicated prior to MRI with ativan see MRI. Notified patient was only able to finish MRI without contrast due to ankle pain. Hospitalist made aware.
[2024-01-17] MEDS: DILAUDID PO (16:45)
--- NOTE | 2024-01-17 17:06 | CM ---
Alert awake oriented patient who lives with his Piper in a 2 story home with 2 steps to enter and 17 steps to bedbathroom.HE is independent in driving and all activities of daily living.Offered VN he requested [facility] .He has
boots for feet , walker and cane. Observation letter given signed on chart.
No SNF/[facility] hx
Pharmacy [facility]
PCP Vignesh
PLAN Home resume [facility]
[2024-01-17 17:11] LABS: Glucose - Point of Care 98 mg/dl (70-99)
--- NOTE | 2024-01-17 18:20 | PTCARENOTE ---
Patient refusing EKG reporting he can not tolerate staying still due to ankle pain. Patient is refusing PRN pain medication. Tangent text sent to ordering physician Dr. Pappas.
[2024-01-17] MEDS: PATIENT'S OWN INSULIN PUMP 5.29999999999999982 UNITS SC (18:23)
--- NOTE | 2024-01-17 18:24 | PTCARENOTE ---
Patient is uncooperative with activity restrictions and ambulating in room without boots. Patient instructed to ring for assistance , however noncompliant. Hospitalist made aware.
[2024-01-17 21:31] LABS: Glucose - Point of Care 191 mg/dl (70-99)
[2024-01-17] MEDS: CALAN EXTENDED RELEASE 360 MG PO (21:32)
[2024-01-17] MEDS: SEROQUEL 50 MG PO (21:32)
[2024-01-17] MEDS: PATIENT'S OWN INSULIN PUMP 3.39999999999999991 UNITS SC (21:53)
[2024-01-18 03:36] VITALS: BP 163/56
[2024-01-18 04:37] LABS: Hematocrit 34.2 % (39.0-52.0); Hemoglobin 11.1 g/dL (13.0-18.0); Mean Corp Hgb Conc. 32.5 g/dL (33.0-37.0); Mean Corpuscular Hgb 24.9 pg (27.0-31.0); Mean Corpuscular Volume 76.7 fL (80.0-94.0); Mean Platelet Volume 9.2 fL (7.4-10.4); Platelet Count 272 10^3/uL (130-400); Red Blood Cell Count 4.46 10^6/uL (4.70-6.10); Red Cell Dist. Width 21.7 % (11.5-14.5); White Blood Cell Count 9.7 10^3/uL (4.8-10.8)
[2024-01-18 05:12] LABS: ALT (SGPT) 38 U/L (0-50); AST (SGOT) 30 U/L (17-59); Albumin 3.6 g/dl (3.5-5.0); Alkaline Phosphatase 104 U/L (38-126); Blood Urea Nitrogen 17 mg/dl (9-20); Calcium 9.5 mg/dl (8.4-10.2); Carbon Dioxide 29 mmol/L (22-30); Chloride 107 mmol/L (98-107); Estimated Creatinine Clearance 91 ml/min; Glucose 56 mg/dl (70-99); Potassium 3.8 mmol/L (3.5-5.1); Sodium 139 mmol/L (135-145); Total Bilirubin 0.4 mg/dl (0.2-1.3); Total Protein 6.5 g/dl (6.3-8.2); eGFR > 60.00
[2024-01-18 07:57] VITALS: BP 132/68
[2024-01-18] MEDS: ASPIR LOW (ENTERIC COATED) 81 MG PO (08:17)
[2024-01-18] MEDS: LIPITOR 40 MG PO (08:17)
[2024-01-18] MEDS: PROTONIX 40 MG PO (08:17)
[2024-01-18] MEDS: APRESOLINE 10 MG PO (08:18)
[2024-01-18] MEDS: HEPARIN 5000 UNITS SC (08:19)
--- NOTE | 2024-01-18 08:21 | PN.DE.MGMTRT ---
Insulin Management
- -
01/18/2024: Diabetes Management Consult:
63 year old male admitted with Agitation, Restlessness, Confusion
PMH: HTN, Tachycardia, Chronic Pain Syndrome, Psoriatic Arthritis, Anxiety, Chronic Anemia and T1DM since childhood.
Pt Awake, alert, orient x3, rsting in bed, offers no complaints, able to participate in discussion regarding diabetes mgt
Pt reports he had an episode of hypoglycemia this morning as low as 63.
Discussed 2% reduction of his overnight basal rate.
New pump settings are as follows:
Basal 12A- 4A 0.7 ICF 12A -12A 1:15
4A - 8A 0.8 ICR 12A - 12A 1:10
8A - 12P 1.20 Target 100-110
12P - 3P 1.40
3P - 6P 1.50
6P - 10P 1.40
10P - 12A 1.30
24 hr Total basal 27.6 units
Pt is independent with managing his insulin pump at this time. Will follow closely and make further basal dose reduction if necessary.
Diabetes History
- -
Type of Diabetes: 1
Pre-Admission Diabetes Regimen
01/18/24
04:11
Creatinine 1.0
Lab Results
Hemoglobin A1c 6.7 % (4.0-5.6) H 01/17/24 06:24
Insulin Pump Settings
IP Diabetes Regimen
01/17/24 01/17/24 01/17/24
08:36 11:52 17:07
Glucose
POC Glucose 78 145 H 98
01/17/24 01/18/24
21:30 04:11
Glucose 56 L
POC Glucose 191 H
Meal type: Lunch
Amount consumed: 100%
Patient Education
[2024-01-18 08:23] LABS: Glucose - Point of Care 63 mg/dl (70-99)
[2024-01-18] MEDS: PATIENT'S OWN INSULIN PUMP SC (08:26)
--- NOTE | 2024-01-18 08:26 | PTCARENOTE ---
Pt had a BS of 63, he has his own insulin pump and it read 81, that is low for his bolus dosing. He did not give himself insulin. I gave him juice and crackers, will recheck in 15 minutes
[2024-01-18 08:48] LABS: Glucose - Point of Care 98 mg/dl (70-99)
[2024-01-18] MEDS: DILAUDID 2 MG PO (09:34)
--- NOTE | 2024-01-18 11:46 | W.PN.HOSP.TC ---
Addendum entered and electronically signed by Joseph Rodriguez MD 01/20/24 16:08:
[id number]
Original Note:
Today's Communication/Plan
-
seroquel 25 mg to 50mg qhs
f/u therapist, pcp, outpatient
Assessment / Plan
Assessment / Plan
Physical Exam
General: NAD, AAOx3
HEENT: Moist mucous membranes and PERRLA
Respiratory: Clear; No Wheezes, Rales or Rhonchi
Cardiac: S1/S2 and Regular Rhythm; No Murmur
GI: Soft, Non Tender, Non Distended, Normal Bowel Sounds and Other (insulin pump RLQ.)
Musculoskeletal: No Clubbing, No Cyanosis and No Edema
Neuro: AO x 3 and Nonfocal/grossly intact (Moves all extremities equally / spontaneously.)
A/P: Patient is a 63y M with PMH significant for HTN and DM-II who presents to ED for evaluation of acute worsening in agitation / restlessness / etc over the past 2 weeks.
Agitation / Restlessness / Apparent Hallucinations
Acute on Chronic Encephalopathy
- Possible related to PTSD +insomnia + Unspecified anxiety
-Brain MRI - no acute process
-F/u Neuro, Psych recs
-start Seroquel - 25mg to 50mg daily - as tolerated
-F/u psych/therapist outpatient
-No urinary or infectious symptoms
Chest Pain
- Patient apparently complained of chest pain on arrival to the ED.
- no complaints upon my eval - trop and ekg without obvious acute ST changes
- Continue daily ASA.
DM-II
- Stable. Continue home insulin pump.
- Follow glucose and provide bolus dosing as needed.
- Update A1C 6.7 -
-f/u outpatient
Psoriatic Arthritis
- History of treatment with biologic agents - most recent Enbrel (2 weeks).
- Hold for now as noted above.
Chronic Pain Syndrome
- Patient is followed by [facility].
- He was tapered off of his usual Belbuca over the past month.
- He is currently on Dilaudid and will continue this for now.
Ankle Injury
- Patient with fall down stairs about 10 days ago.
- CT head is unremarkable.
- Reportedly broke both ankles and has walking boots at the bedside.
-imaging with avulsion - spoke to Podiatry - agreement with splinting - f/u outpatient
DVT Prophylaxis: Subcut Heparin
Code Status: Full
More than 30 minutes spent in discharge including
Final examination of the patient
Summarizing hospital stay
Instructions for continuing care to all relevant caregivers
Preparation of discharge records, prescriptions, and referral forms
Total time spent (35 in minutes):
Anticipated Discharge: Today
Subjective/Interval History
-
Date of Service: January 18, 2024
no issues with sleeping or hallucinations, bit groggy this am
Objective Data
-
Labs:
Laboratory Results
01/18/24
04:11
WBC 9.7
Hgb 11.1 L
Hct 34.2 L
Plt Count 272
Sodium 139
Potassium 3.8
Chloride 107
Carbon Dioxide 29
BUN 17
Creatinine 1.0
Glucose 56 L
Calcium 9.5
Total Bilirubin 0.4
AST 30
ALT 38
Alkaline Phosphatase 104
Vital Signs:
Vital Signs
Temp Pulse Resp BP Pulse Ox
98 F 72 18 132/68 98
01/18/24 07:57 01/18/24 08:18 01/18/24 07:57 01/18/24 08:18 01/18/24 11:30
I&O
01/17/24 01/18/24 01/19/24
06:59 06:59 06:59
Intake Total 1200 / 1200
Output Total 950 / 950
Balance 250 / 250
Review of Systems
-
History Source: Patient
All other systems: Not reviewed unless documented
Data Reviewed
-
Diagnostic Radiology: Image personally visualized and interpreted and Report Reviewed by me
CT Scan: Image personally visualized and interpreted and Report Reviewed by me
Labs: Labs Reviewed by me
[2024-01-18 11:51] VITALS: BP 167/49
--- NOTE | 2024-01-18 11:56 | W.DS.TRANS ---
DC Summary - Speech Language Pathologist Prn
-
Discharge Instructions:
Discharge Diagnosis/Procedures Agitation / Restlessness / Apparent
Hallucinations
PTSD
Insomnia, with episodes of sleep walking, R/o
REM Behavior disorder
Anxiety
Sleep deprivation
Diet Low Fat,Low Cholesterol,Diabetic, Carb
Controlled
Activity As tolerated
Instructions:
Stand-Alone Forms:
Changes to Home Medications: Yes
Discharge Medications:
DC Medications w/original date entered in [facility]
aspirin 81 mg tablet,delayed release 81 mg PO BID Blood Clot Prevention/Tx 01/16/24
atorvastatin 40 mg tablet 40 mg PO DAILY High Cholesterol 01/16/24
carvedilol 25 mg tablet 25 mg PO BID Heart Failure 01/16/24
escitalopram oxalate 20 mg tablet 20 mg PO DAILY Depression 01/16/24
etanercept 50 mg/mL (1 mL) subcutaneous syringe (Enbrel) 50 mg SC SA Autoimmune Disorder 01/16/24
hydralazine 10 mg tablet 10 mg PO TID Blood Pressure 01/16/24
insulin lispro 100 unit/mL subcutaneous cartridge (Humalog U-100 Insulin) 0 unit SC .VIA PUMP Diabetes 01/16/24
pantoprazole 40 mg tablet,delayed release 40 mg PO DAILY Gastrointestinal Issue 01/16/24
verapamil 360 mg 24 hr capsule,extended release 360 mg PO HS Blood Pressure 01/16/24
naproxen 500 mg tablet 500 mg PO Q48H PRN Anti-Inflammatory #0 tabs 01/18/24
quetiapine 25 mg tablet 25 mg PO HS #60 tabs 01/18/24
Home Medication Changes
quetiapine 25 mg tablet 25 mg PO HS #60 tabs 01/18/24
Pending Results: No
[2024-01-18 12:30] LABS: Glucose - Point of Care 119 mg/dl (70-99)
--- NOTE | 2024-01-18 14:32 | CM ---
entewred order for dischargetoday.
Pt requested [facility] at [facility].
Spoke with Cecille at [facility] pt is current [facility]
Family to drive him home.
PLAN Home with [facility] fax [phone]
[2024-01-18 15:35] LABS: Syphilis/T. pallidum Ab Reflex Negative (Negative)
[2024-01-20 18:29] LABS: Lyme Ab Western Blot IgG Negative (Negative); Lyme Ab Western Blot IgM Negative (Negative)
== END 2024-01-18 14:42 | disposition home health service (06) ==
LOC: 4 EAST ACU 01:22
PROVIDERS: Emergency Medicine; ADMITTING PHYSICIAN Hospitalist; ATTENDING PHYSICIAN Internal Medicine; CONSULT PHYSICIAN Psychiatry & Neurology Psychiatry; EMERGENCY PHYSICIAN Emergency Medicine; FAMILY PHYSICIAN Internal Medicine; OTHER PHYSICIAN Student in an Organized Health Care Education/Training Program
DX: G47.00 Insomnia, unspecified (principal); G47.52 REM sleep behavior disorder; R00.2 Palpitations; F41.0 Panic disorder [episodic paroxysmal anxiety]; G93.49 Other encephalopathy; I10 Essential (primary) hypertension; E11.9 Type 2 diabetes mellitus without complications; R07.89 Other chest pain; F51.3 Sleepwalking [somnambulism]; R44.3 Hallucinations, unspecified; G89.4 Chronic pain syndrome; L40.50 Arthropathic psoriasis, unspecified; F43.10 Post-traumatic stress disorder, unspecified; M06.9 Rheumatoid arthritis, unspecified; S82.892A Other fracture of left lower leg, initial encounter for closed fracture; S82.891A Other fracture of right lower leg, initial encounter for closed fracture; W10.8XXA Fall (on) (from) other stairs and steps, initial encounter; Y93.01 Activity, walking, marching and hiking; Y92.008 Other place in unspecified non-institutional (private) residence as the place of occurrence of the external cause; Z87.891 Personal history of nicotine dependence; Z88.1 Allergy status to other antibiotic agents; Z88.8 Allergy status to other drugs, medicaments and biological substances; Z88.0 Allergy status to penicillin; Z88.5 Allergy status to narcotic agent; Z91.81 History of falling; Z79.82 Long term (current) use of aspirin; Z79.4 Long term (current) use of insulin; Z96.41 Presence of insulin pump (external) (internal)
CPT/HCPCS: 70030; 70450; 70551; 71046; 73620; 80048; 80053; 80306; 80307; 81003; 82077; 82607; 82962; 83036; 83540; 83550; 83735; 84443; 84484; 85025; 85027; 85730; 86617; 86618; 86780; 93005; 96374; 96375; 97162; 97166; 99285; G0378